=== PATIENT | female | born 1935 | race Caucasian/White ===

== ENCOUNTER 2021-03-26 06:50 | Inpatient (IN) ==
[2021-03-26] MEDS ORDERED: NS 0.9% 1000 ml BAG 1,000 ML IV ONE ×2 (06:52→14:16)
[2021-03-26] MEDS ORDERED: Iodixanol (CONTRAST) 320 MG/ML 100 ML SDV IV ONE ×2 (07:26→08:35)
[2021-03-26 07:50] LABS: ABS Basophils 0.1 10^3/ul (0-0.2); ABS Eosinophils 0.1 10^3/ul (0-0.6); ABS Lymphocytes 2.2 10^3/ul (1.0-4.8); ABS Monocytes 0.5 10^3/ul (0-0.8); ABS Neutrophils 5.6 10^3/ul (1.5-7.7); Eosinophil % 1.5 %; Hematocrit 36 % (35-47); Hemoglobin 11.4 g/dL (12.0-16.0); Lymphocyte % 25.4 %; Mean Corpuscular HGB Conc 32 g/dL (31-36); Mean Corpuscular Hemoglobin 22 pg (27-31); Mean Corpuscular Volume 69 fL (80-97); Platelet Count 315 10^3/uL (150-450); Red Blood Count 5.18 10^6 /uL (3.70-4.87); Red Cell Distribution Width 20 % (10-15); White Blood Count 8.5 10^3/uL (3.5-10.8)
[2021-03-26 07:53] LABS: Activated Partial Thrombo Time 40.4 seconds (26.0-38.0); INR 2.43 (0.86-1.15)
[2021-03-26 07:54] LABS: ALT 15 U/L (7-52); AST 47 U/L (13-39); Albumin 4.5 g/dL (3.2-5.2); Albumin/Globulin Ratio 1.4 (1-3); Alkaline Phosphatase 63 U/L (35-149); Anion Gap 11 mmol/L (2-11); Blood Urea Nitrogen 20 mg/dL (6-24); CO2 Carbon Dioxide 26 mmol/L (22-32); Calcium 9.4 mg/dL (8.6-10.3); Chloride 97 mmol/L (101-111); Cholesterol 116 mg/dL; EGFR African American 90.7 (>60); Globulin 3.3 g/dL (2-4); Glucose 137 mg/dL (70-100); HDL Cholesterol 46.5 mg/dL; LDL Cholesterol 55 mg/dL; Potassium 3.9 mmol/L (3.5-5.0); Sodium 134 mmol/L (135-145); Total Protein 7.8 g/dL (6.4-8.9); Triglycerides 74 mg/dL
[2021-03-26 07:59] LABS: Troponin I 1.26 ng/mL (<0.03)
[2021-03-26 08:31] LABS: Hypochromasia 1+; Microcytosis 1+; Polychromasia 1+
[2021-03-26 09:48] LABS: Rapid COVID-19 Molecular Undetected (Undetected)
[2021-03-26] MEDS ORDERED: Polyethylene Glycol 3350 17 GM PACKET PO PRN (10:13)
[2021-03-26 10:52] LABS: Troponin I 1.18 ng/mL (<0.03)
[2021-03-26] MEDS ORDERED: Perflutren Lipid Microsphere 3 ML VIAL ONE (14:53)
[2021-03-26] MEDS: Warfarin DAILY REMINDER **NOTE FOLLOW UP SCH (19:59)
[2021-03-27 05:40] LABS: INR 2.57 (0.86-1.15)
[2021-03-27] MEDS: Cholecalciferol (VIT D3) 1,000 unit TAB PO SCH (07:50)
[2021-03-27] MEDS: Warfarin DAILY REMINDER **NOTE FOLLOW UP SCH (19:24)
[2021-03-27] MEDS: Enoxaparin 40 MG/0.4 ML SYR SUBCUT SCH (20:47)
[2021-03-27] MEDS ORDERED: Lactated Ringers 1000 ml BAG 1,000 ML IV SCH (21:00)
[2021-03-28 05:47] LABS: Hematocrit 38 % (35-47); Hemoglobin 11.7 g/dL (12.0-16.0); Mean Corpuscular HGB Conc 31 g/dL (31-36); Mean Corpuscular Hemoglobin 21 pg (27-31); Mean Corpuscular Volume 69 fL (80-97); Mean Platelet Volume 7.6 fL (7.4-10.4); Platelet Count 298 10^3/uL (150-450); Red Blood Count 5.45 10^6 /uL (3.70-4.87); Red Cell Distribution Width 20 % (10-15); White Blood Count 7.9 10^3/uL (3.5-10.8)
[2021-03-28 06:01] LABS: Calcium 9.1 mg/dL (8.6-10.3); EGFR African American 101.7 (>60); EGFR Non-African American 84.1 (>60); Magnesium 1.8 mg/dL (1.9-2.7); Potassium 3.5 mmol/L (3.5-5.0)
[2021-03-28] MEDS: Cholecalciferol (VIT D3) 1,000 unit TAB PO SCH (09:28)
[2021-03-28] MEDS ORDERED: Magnesium Hydroxide LIQ 30 ML UDC PO PRN (15:14)
[2021-03-28] MEDS: Ondansetron 4 mg VIAL 2 MG/ML 2 ml VIAL IV PRN (15:58)
[2021-03-28] MEDS: Senna TAB 8.6 mg TAB PO PRN (15:58)
[2021-03-28] MEDS: Enoxaparin 40 MG/0.4 ML SYR SUBCUT SCH (20:38)
[2021-03-29 06:35] LABS: ABS Basophils 0.1 10^3/ul (0-0.2); ABS Eosinophils 0.2 10^3/ul (0-0.6); ABS Lymphocytes 2.3 10^3/ul (1.0-4.8); ABS Monocytes 0.5 10^3/ul (0-0.8); Eosinophil % 3.1 %; Hematocrit 36 % (35-47); Hemoglobin 11.2 g/dL (12.0-16.0); Lymphocyte % 32.3 %; Mean Corpuscular HGB Conc 31 g/dL (31-36); Mean Corpuscular Hemoglobin 22 pg (27-31); Mean Corpuscular Volume 70 fL (80-97); Mean Platelet Volume 7.6 fL (7.4-10.4); Platelet Count 269 10^3/uL (150-450); Red Blood Count 5.18 10^6 /uL (3.70-4.87); Red Cell Distribution Width 20 % (10-15); White Blood Count 7.1 10^3/uL (3.5-10.8)
[2021-03-29 06:42] LABS: Calcium 8.6 mg/dL (8.6-10.3); EGFR African American 95.1 (>60); EGFR Non-African American 78.6 (>60); Potassium 3.8 mmol/L (3.5-5.0)
[2021-03-29] MEDS: Cholecalciferol (VIT D3) 1,000 unit TAB PO SCH (08:45)
[2021-03-29] MEDS: Enoxaparin 40 MG/0.4 ML SYR SUBCUT SCH (20:18)
[2021-03-29] MEDS: Ondansetron 4 mg VIAL 2 MG/ML 2 ml VIAL IV PRN (20:18)
[2021-03-30] MEDS: Cholecalciferol (VIT D3) 1,000 unit TAB PO SCH (08:11)
[2021-03-30 09:44] LABS: Hematocrit 36 % (35-47); Hemoglobin 11.2 g/dL (12.0-16.0); Mean Corpuscular HGB Conc 31 g/dL (31-36); Mean Corpuscular Hemoglobin 22 pg (27-31); Mean Corpuscular Volume 70 fL (80-97); Mean Platelet Volume 7.6 fL (7.4-10.4); Platelet Count 278 10^3/uL (150-450); Red Blood Count 5.15 10^6 /uL (3.70-4.87); Red Cell Distribution Width 20 % (10-15); White Blood Count 5.9 10^3/uL (3.5-10.8)
[2021-03-30 10:00] LABS: Anion Gap 6 mmol/L (2-11); Blood Urea Nitrogen 18 mg/dL (6-24); CO2 Carbon Dioxide 28 mmol/L (22-32); Calcium 8.8 mg/dL (8.6-10.3); Chloride 101 mmol/L (101-111); EGFR African American 86.6 (>60); EGFR Non-African American 71.6 (>60); Glucose 106 mg/dL (70-100); Potassium 4.1 mmol/L (3.5-5.0); Sodium 135 mmol/L (135-145)
[2021-03-30 10:15] LABS: % Iron Saturation 5 % (15-55); Iron 25 ug/dL (50-212); Total Iron Binding Capacity 518 mcg/dL (250-450); Transferrin 370 mg/dL (203-362); Unsaturated Iron Binding < 503 ug/dL
[2021-03-30 10:35] LABS: Ferritin 27.1 ng/mL (11-307)
[2021-03-30 13:43] LABS: TSH Ultra Thyroid Stim Horm 3.41 mcIU/mL (0.34-5.60)
[2021-03-30 13:54] LABS: Vitamin B12 327 pg/mL (180-914)
[2021-03-30] MEDS ORDERED: fentaNYL 100 mcg/2 ml 50 MCG/ML VIAL ONE (14:07)
[2021-03-30] MEDS ORDERED: Midazolam 5 mg/5 ml VIAL 1 mg/ml 5 ml VIAL (5 mg) ONE (14:07)
[2021-03-30] MEDS ORDERED: Flumazenil 0.5 mg/5 ml 0.1 MG/ML 5 ml VIAL ONE (14:07)
[2021-03-30] MEDS ORDERED: Naloxone 0.4 mg VIAL 0.4 mg/ml 1 ml VIAL ONE (14:07)
[2021-03-30] MEDS: Iron Sucrose 200 MG in NS 0.9% 100 ml BAG 100 ML IVPB SCH (16:21)
[2021-03-30] MEDS ORDERED: PEG 3000 GI LAVAGE 1 GALLON PO ONE (18:00)
[2021-03-30] MEDS: Enoxaparin 40 MG/0.4 ML SYR SUBCUT SCH (19:42)
[2021-03-31 07:39] LABS: INR 1.37 (0.86-1.15)
[2021-03-31 07:40] LABS: Albumin 4.1 g/dL (3.2-5.2); Albumin/Globulin Ratio 1.2 (1-3); EGFR African American 89.3 (>60); EGFR Non-African American 73.8 (>60); Globulin 3.3 g/dL (2-4); Hematocrit 37 % (35-47); Hemoglobin 11.2 g/dL (12.0-16.0); Magnesium 1.9 mg/dL (1.9-2.7); Mean Corpuscular HGB Conc 31 g/dL (31-36); Mean Corpuscular Hemoglobin 22 pg (27-31); Mean Corpuscular Volume 71 fL (80-97); Mean Platelet Volume 7.7 fL (7.4-10.4); Platelet Count 287 10^3/uL (150-450); Potassium 3.8 mmol/L (3.5-5.0); Red Blood Count 5.19 10^6 /uL (3.70-4.87); Red Cell Distribution Width 20 % (10-15); Total Bilirubin 0.6 mg/dL (0.2-1.0); Total Protein 7.4 g/dL (6.4-8.9); White Blood Count 6.1 10^3/uL (3.5-10.8)
[2021-03-31] MEDS: Iron Sucrose 200 MG in NS 0.9% 100 ml BAG 100 ML IVPB SCH (09:41)
[2021-03-31] MEDS: NS 0.9% 1000 ml BAG 1,000 ML IV SCH ×2 (09:41→20:50)
[2021-03-31] MEDS: Cholecalciferol (VIT D3) 1,000 unit TAB PO SCH (09:42)
[2021-03-31] MEDS ORDERED: fentaNYL 100 mcg/2 ml 50 MCG/ML VIAL ONE (16:36)
[2021-03-31] MEDS ORDERED: Midazolam 10 mg/10 ml VIAL 1 mg/ml 10 ml VIAL (10 mg) ONE (16:36)
[2021-03-31] MEDS: Enoxaparin 40 MG/0.4 ML SYR SUBCUT SCH (20:47)
[2021-04-01] MEDS: Ondansetron 4 mg VIAL 2 MG/ML 2 ml VIAL IV PRN (02:44)
[2021-04-01 05:20] LABS: Hematocrit 35 % (35-47); Hemoglobin 10.6 g/dL (12.0-16.0); Mean Corpuscular HGB Conc 31 g/dL (31-36); Mean Corpuscular Hemoglobin 22 pg (27-31); Mean Corpuscular Volume 71 fL (80-97); Mean Platelet Volume 7.5 fL (7.4-10.4); Platelet Count 254 10^3/uL (150-450); Red Blood Count 4.89 10^6 /uL (3.70-4.87); Red Cell Distribution Width 20 % (10-15); White Blood Count 6.1 10^3/uL (3.5-10.8)
[2021-04-01 05:40] LABS: Calcium 8.5 mg/dL (8.6-10.3); EGFR African American 101.7 (>60); EGFR Non-African American 84.1 (>60); Potassium 3.5 mmol/L (3.5-5.0)
[2021-04-01] MEDS: Cholecalciferol (VIT D3) 1,000 unit TAB PO SCH (08:08)
[2021-04-01] MEDS: Iron Sucrose 200 MG in NS 0.9% 100 ml BAG 100 ML IVPB SCH (09:29)
[2021-04-02 06:45] LABS: ABS Basophils 0.1 10^3/ul (0-0.2); ABS Eosinophils 0.2 10^3/ul (0-0.6); ABS Lymphocytes 1.2 10^3/ul (1.0-4.8); ABS Monocytes 0.4 10^3/ul (0-0.8); ABS Neutrophils 4.2 10^3/ul (1.5-7.7); Eosinophil % 3.8 %; Hematocrit 35 % (35-47); Hemoglobin 10.9 g/dL (12.0-16.0); Lymphocyte % 20.1 %; Mean Corpuscular HGB Conc 31 g/dL (31-36); Mean Corpuscular Hemoglobin 22 pg (27-31); Mean Corpuscular Volume 72 fL (80-97); Mean Platelet Volume 7.7 fL (7.4-10.4); Nucleated Red Blood Cells % 0.4; Platelet Count 256 10^3/uL (150-450); Red Cell Distribution Width 20 % (10-15); White Blood Count 6.2 10^3/uL (3.5-10.8)
[2021-04-02] MEDS: Cholecalciferol (VIT D3) 1,000 unit TAB PO SCH (08:56)
[2021-04-02] MEDS: Iron Sucrose 200 MG in NS 0.9% 100 ml BAG 100 ML IVPB SCH (10:15)
[2021-04-02] MEDS: Senna TAB 8.6 mg TAB PO PRN (20:32)
[2021-04-02] MEDS: Ondansetron 4 mg VIAL 2 MG/ML 2 ml VIAL IV PRN (22:24)
[2021-04-03] MEDS: Cholecalciferol (VIT D3) 1,000 unit TAB PO SCH (08:43)
[2021-04-03] MEDS: Iron Sucrose 200 MG in NS 0.9% 100 ml BAG 100 ML IVPB SCH (08:44)
[2021-04-03 12:04] VITALS: BP 146/70
== END 2021-04-03 13:20 | disposition home health service (06) | DRG 65 ==
LOC: ED 06:50 → MEDTELE 10:02 → SUATTDRO 10:02 → MEDTELE 11:37
PROVIDERS: ADMIT Hospitalist; ATTEND Internal Medicine

== ENCOUNTER 2021-09-21 04:12 | Observation (INO) ==
[2021-09-21] MEDS ORDERED: NS 0.9% 1000 ml BAG 1,000 ML IV ONE (04:16)
[2021-09-21] MEDS ORDERED: Ondansetron 4 mg VIAL 2 MG/ML 2 ml VIAL IV ONE (04:19)
[2021-09-21 04:41] LABS: ABS Basophils 0.1 10^3/ul (0-0.2); ABS Eosinophils 0.1 10^3/ul (0-0.6); ABS Lymphocytes 2.3 10^3/ul (1.0-4.8); ABS Monocytes 0.4 10^3/ul (0-0.8); ABS Neutrophils 4.4 10^3/ul (1.5-7.7); Eosinophil % 1.4 %; Hematocrit 47 % (35-47); Hemoglobin 15.5 g/dL (12.0-16.0); Lymphocyte % 31.6 %; Mean Corpuscular HGB Conc 33 g/dL (31-36); Mean Corpuscular Hemoglobin 30 pg (27-31); Mean Corpuscular Volume 92 fL (80-97); Mean Platelet Volume 8.3 fL (7.4-10.4); Platelet Count 215 10^3/uL (150-450); Red Blood Count 5.13 10^6 /uL (3.70-4.87); Red Cell Distribution Width 15 % (10-15); White Blood Count 7.3 10^3/uL (3.5-10.8)
[2021-09-21 04:50] LABS: Activated Partial Thrombo Time 30.2 seconds (26.0-38.0); INR 1.41 (0.86-1.15)
[2021-09-21 04:59] LABS: Troponin I 0.02 ng/mL (<0.03)
[2021-09-21 05:09] LABS: ALT 21 U/L (7-52); Alkaline Phosphatase 47 U/L (35-149); Blood Urea Nitrogen 23 mg/dL (6-24); CO2 Carbon Dioxide 27 mmol/L (22-32); Calcium 9.7 mg/dL (8.6-10.3); Chloride 102 mmol/L (101-111); Cholesterol 157 mg/dL; Globulin 2.5 g/dL (2-4); Glucose 170 mg/dL (70-100); HDL Cholesterol 59.1 mg/dL; LDL Cholesterol 79 mg/dL; Sodium 138 mmol/L (135-145); Total Protein 7.5 g/dL (6.4-8.9); Triglycerides 95 mg/dL; eGFR CKD-EPI 85.2 (>60)
[2021-09-21 05:23] LABS: Anion Gap 9 mmol/L (2-11)
[2021-09-21] MEDS ORDERED: Prochlorperazine 5 mg/ml 2 ml VIAL (10 mg) IV ONE (05:28)
[2021-09-21] MEDS ORDERED: diPHENhydraMINE IV 50 MG/ML 1 ml VIAL (BENADRYL) IV ONE (06:02)
[2021-09-21] MEDS ORDERED: Iodixanol (CONTRAST) 320 MG/ML 100 ML SDV IV ONE (06:02)
[2021-09-21] MEDS ORDERED: Metoclopramide 5 MG/ML VIAL (10 mg) IV SLOW PU ONE (06:02)
[2021-09-21 06:32] LABS: Potassium Redraw 2.7 mmol/L (3.5-5.0)
[2021-09-21] MEDS ORDERED: Potassium Chloride IV 40 MEQ in Lactated Ringers 1000 ml BAG 1,000 ML IVPB SCH (07:00)
[2021-09-21] MEDS: NS 0.9% 1000 ml BAG 1,000 ML IV SCH (08:42)
[2021-09-21] MEDS: KCL 10 MEQ/50 ML IVPREMIX 10 MEQ/50 ML BAG IV SCH ×2 (08:43→12:32)
[2021-09-21] MEDS ORDERED: Polyethylene Glycol 3350 17 GM PACKET PO PRN (11:07)
[2021-09-21] MEDS ORDERED: Magnesium Hydroxide LIQ 30 ML UDC PO PRN (11:07)
[2021-09-21 11:09] LABS: Urine Appearance Clear; Urine Bilirubin Negative (Negative); Urine Blood 1+ (Negative); Urine Color Straw; Urine Glucose Negative (Negative); Urine Ketones Negative (Negative); Urine Nitrite Negative (Negative); Urine Protein Negative (Negative); Urine Specific Gravity 1.011 (1.002-1.030); Urine Urobilinogen Negative (Negative)
[2021-09-21 11:24] LABS: Urine Bacteria Absent (Absent); Urine Red Blood Cell Trace(0-2/hpf) (Absent); Urine White Blood Cell Trace(0-5/hpf) (Absent)
[2021-09-21] MEDS ORDERED: Psyllium PAK PO PRN (11:33)
[2021-09-22 06:04] LABS: ABS Eosinophils 0.1 10^3/ul (0-0.6); ABS Lymphocytes 1.9 10^3/ul (1.0-4.8); ABS Monocytes 0.5 10^3/ul (0-0.8); Eosinophil % 0.9 %; Hematocrit 46 % (35-47); Hemoglobin 15.3 g/dL (12.0-16.0); Mean Corpuscular HGB Conc 34 g/dL (31-36); Mean Corpuscular Hemoglobin 31 pg (27-31); Mean Corpuscular Volume 92 fL (80-97); Mean Platelet Volume 8.3 fL (7.4-10.4); Platelet Count 209 10^3/uL (150-450); Red Blood Count 4.97 10^6 /uL (3.70-4.87); Red Cell Distribution Width 15 % (10-15); White Blood Count 8.6 10^3/uL (3.5-10.8)
[2021-09-22 06:27] LABS: Calcium 9.6 mg/dL (8.6-10.3); HDL Cholesterol 62.5 mg/dL; Potassium 3.8 mmol/L (3.5-5.0)
[2021-09-22] MEDS ORDERED: LUTEIN ZEAXANTHIN PO SCH (09:00)
[2021-09-22] MEDS ORDERED: Cholecalciferol (VIT D3) 1,000 unit TAB PO SCH (09:00)
[2021-09-22] MEDS: NS 0.9% 1000 ml BAG 1,000 ML IV SCH (10:38)
[2021-09-22 12:29] VITALS: BP 167/94
== END 2021-09-22 15:50 | disposition home or self-care (01) ==
LOC: ED 04:12 → EDHOLD 04:12 → MEDTELE 15:30
PROVIDERS: ADMIT Internal Medicine; ATTEND Internal Medicine

== ENCOUNTER 2023-11-22 12:13 | Inpatient (IN) ==
[2023-11-22 12:53] LABS: ABS Lymphocytes 0.6 10^3/uL (1.0-4.8); ABS Monocytes 0.3 10^3/uL (0.0-0.9); ABS Neutrophils 10.3 10^3/uL (1.5-7.6); ABS Nucleated RBC 0.01 10^3/ul; Eosinophil % 0.1 %; Hemoglobin 14.1 g/dL (11.5-14.3); Lymphocyte % 5.2 %; Mean Corpuscular Hemoglobin 27.6 pg (27-33); Mean Corpuscular Hgb Conc 32.7 g/dL (31-36); Mean Corpuscular Volume 84.3 fL (80-97); Mean Platelet Volume 8.6 fL (7.5-11.2); Nucleated Red Blood Cells % 0.1 %/100WBC (0.0-0.8); Platelet Count 241 10^3/uL (150-450); Red Cell Distribution Width 16.8 % (12-17); White Blood Count 11.3 10^3/uL (3.8-11.8)
[2023-11-22 13:04] LABS: Activated Partial Thrombo Time 30.9 seconds (26.0-38.0); INR 1.85 (0.83-1.13)
[2023-11-22] MEDS: Lactated Ringers 1000 ml BAG 1,000 ML IV ONE ×2 (14:25→18:19)
[2023-11-22 15:31] LABS: Albumin 4.5 g/dL (3.2-5.2); Albumin/Globulin Ratio 1.6 (1-3); Calcium 9.2 mg/dL (8.6-10.3); Creatinine, Serum 0.72 mg/dL (0.51-0.95); Direct Bilirubin 0.1 mg/dL (0.03-0.18); Globulin 2.9 g/dL (2-4); HDL Cholesterol 52.9 mg/dL; Indirect Bilirubin 0.7 mg/dL (0.3-1.0); Total Bilirubin 0.8 mg/dL (0.2-1.0); Total Protein 7.4 g/dL (6.4-8.9); eGFR CKD-EPI 81.4 (>60)
[2023-11-22 16:52] LABS: Urine Appearance Clear; Urine Bilirubin Negative (Negative); Urine Blood 1+ (Negative); Urine Color Light-Yellow; Urine Glucose Negative (Negative); Urine Ketones Negative (Negative); Urine Nitrite Negative (Negative); Urine Protein 1+ (>=30 mg/dL) (Negative); Urine Specific Gravity 1.041 (1.002-1.030); Urine Urobilinogen Negative (Negative)
[2023-11-22 16:55] LABS: Urine Bacteria Absent /HPF (Absent); Urine Red Blood Cell 1+(3-5/hpf) /HPF (0-Trace); Urine Squamous Epithelial Cell Present /HPF (Absent); Urine White Blood Cell 2+(11-20/hpf) /HPF (0-Trace)
[2023-11-22 18:14] LABS: C Reactive Protein 4.59 mg/L (<8.01)
[2023-11-22] MEDS: Latanoprost 0.005% 2.5 ml BTL BOTH EYES SCH (21:35)
[2023-11-24 23:58] LABS: Calcium 8.8 mg/dL (8.6-10.3); Creatinine, Serum 0.77 mg/dL (0.51-0.95); Magnesium 1.9 mg/dL (1.9-2.7); Potassium 3.6 mmol/L (3.5-5.0); eGFR CKD-EPI 75.1 (>60)
[2023-11-25] MEDS ORDERED: Senna TAB 8.6 mg TAB PO PRN (13:51)
[2023-11-25] MEDS ORDERED: Magnesium Hydroxide LIQ 30 ML UDC PO PRN (13:51)
[2023-11-25] MEDS: Polyethylene Glycol 3350 17 GM PACKET PO PRN (21:15)
[2023-11-27 10:03] VITALS: BP 135/86
== END 2023-11-27 11:40 | DRG 64 ==
LOC: ED 12:13 → EDHOLD 12:13 → SUATTDRO 16:03 → MEDTELE 19:42
PROVIDERS: ADMIT Internal Medicine; ATTEND Hospitalist

== ENCOUNTER 2023-11-25 12:44 | Inpatient (IN) ==
[2023-11-27] MEDS ORDERED: Magnesium Hydroxide LIQ 30 ML UDC PO PRN (10:53)
[2023-11-27] MEDS: Latanoprost 0.005% 2.5 ml BTL BOTH EYES SCH (20:13)
[2023-11-28 08:07] LABS: ABS Basophils 0.1 10^3/uL (0.0-0.1); ABS Eosinophils 0.2 10^3/uL (0.0-0.5); ABS Lymphocytes 1.7 10^3/uL (1.0-4.8); ABS Monocytes 0.7 10^3/uL (0.0-0.9); ABS Neutrophils 4.5 10^3/uL (1.5-7.6); ABS Nucleated RBC 0.02 10^3/ul; Eosinophil % 3.1 %; Hematocrit 45.9 % (35-45); Hemoglobin 15.1 g/dL (11.5-14.3); Lymphocyte % 23.4 %; Mean Corpuscular Hemoglobin 28.1 pg (27-33); Mean Corpuscular Volume 85.2 fL (80-97); Mean Platelet Volume 8.8 fL (7.5-11.2); Nucleated Red Blood Cells % 0.2 %/100WBC (0.0-0.8); Platelet Count 210 10^3/uL (150-450); Red Blood Count 5.38 10^6/uL (3.63-4.92); Red Cell Distribution Width 16.1 % (12-17); White Blood Count 7.2 10^3/uL (3.8-11.8)
[2023-11-28 09:55] LABS: Albumin 4.1 g/dL (3.2-5.2); Albumin/Globulin Ratio 1.6 (1-3); Calcium 9.2 mg/dL (8.6-10.3); Creatinine, Serum 0.69 mg/dL (0.51-0.95); Globulin 2.5 g/dL (2-4); Potassium 4.3 mmol/L (3.5-5.0); Total Bilirubin 0.7 mg/dL (0.2-1.0); Total Protein 6.6 g/dL (6.4-8.9); eGFR CKD-EPI 84.5 (>60)
[2023-11-30 22:05] LABS: Urine Appearance Turbid; Urine Bilirubin Negative (Negative); Urine Blood Negative (Negative); Urine Color Light-Yellow; Urine Glucose Negative (Negative); Urine Ketones Negative (Negative); Urine Nitrite Negative (Negative); Urine Protein Trace (Negative); Urine Urobilinogen Negative (Negative)
[2023-11-30 22:07] LABS: Urine Bacteria 1+ /HPF (Absent); Urine Red Blood Cell 1+(3-5/hpf) /HPF (0-Trace); Urine Squamous Epithelial Cell Present /HPF (Absent); Urine Transitional Epithelial Present /HPF (Absent); Urine White Blood Cell 3+(>20/hpf) /HPF (0-Trace)
[2023-12-01 09:50] LABS: ABS Basophils 0.1 10^3/uL (0.0-0.1); ABS Eosinophils 0.1 10^3/uL (0.0-0.5); ABS Lymphocytes 1.4 10^3/uL (1.0-4.8); ABS Monocytes 0.5 10^3/uL (0.0-0.9); ABS Neutrophils 5.7 10^3/uL (1.5-7.6); Eosinophil % 1.6 %; Hematocrit 44.4 % (35-45); Hemoglobin 14.3 g/dL (11.5-14.3); Lymphocyte % 18.2 %; Mean Corpuscular Hemoglobin 27.7 pg (27-33); Mean Corpuscular Hgb Conc 32.1 g/dL (31-36); Mean Corpuscular Volume 86.3 fL (80-97); Mean Platelet Volume 8.3 fL (7.5-11.2); Platelet Count 201 10^3/uL (150-450); Red Blood Count 5.14 10^6/uL (3.63-4.92); Red Cell Distribution Width 16.2 % (12-17); White Blood Count 7.9 10^3/uL (3.8-11.8)
[2023-12-01 10:19] LABS: Activated Partial Thrombo Time 28.1 seconds (26.0-38.0); INR 1.04 (0.83-1.13)
[2023-12-01 10:27] LABS: Creatinine, Serum 0.77 mg/dL (0.51-0.95); eGFR CKD-EPI 75.1 (>60)
[2023-12-01] MEDS: Heparin 5000 UNITS/ML 1 mL VIAL SUBCUT SCH (21:02)
[2023-12-04 05:13] LABS: ABS Basophils 0.1 10^3/uL (0.0-0.1); ABS Eosinophils 0.2 10^3/uL (0.0-0.5); ABS Lymphocytes 1.9 10^3/uL (1.0-4.8); ABS Monocytes 0.6 10^3/uL (0.0-0.9); ABS Neutrophils 3.8 10^3/uL (1.5-7.6); Eosinophil % 3.2 %; Hematocrit 41.3 % (35-45); Hemoglobin 13.4 g/dL (11.5-14.3); Lymphocyte % 28.7 %; Mean Corpuscular Hemoglobin 27.8 pg (27-33); Mean Corpuscular Hgb Conc 32.5 g/dL (31-36); Mean Corpuscular Volume 85.7 fL (80-97); Mean Platelet Volume 8.6 fL (7.5-11.2); Nucleated Red Blood Cells % 0.1 %/100WBC (0.0-0.8); Platelet Count 186 10^3/uL (150-450); Red Blood Count 4.82 10^6/uL (3.63-4.92); Red Cell Distribution Width 16.2 % (12-17); White Blood Count 6.5 10^3/uL (3.8-11.8)
[2023-12-05 06:24] LABS: ABS Basophils 0.1 10^3/uL (0.0-0.1); ABS Eosinophils 0.2 10^3/uL (0.0-0.5); ABS Lymphocytes 1.9 10^3/uL (1.0-4.8); ABS Monocytes 0.6 10^3/uL (0.0-0.9); ABS Neutrophils 5.3 10^3/uL (1.5-7.6); ABS Nucleated RBC 0.01 10^3/ul; Eosinophil % 2.6 %; Hematocrit 43.6 % (35-45); Hemoglobin 14.3 g/dL (11.5-14.3); Lymphocyte % 23.1 %; Mean Corpuscular Hgb Conc 32.9 g/dL (31-36); Mean Corpuscular Volume 85.2 fL (80-97); Mean Platelet Volume 8.5 fL (7.5-11.2); Nucleated Red Blood Cells % 0.2 %/100WBC (0.0-0.8); Platelet Count 215 10^3/uL (150-450); Red Blood Count 5.11 10^6/uL (3.63-4.92); Red Cell Distribution Width 16.5 % (12-17)
[2023-12-05 06:42] LABS: Albumin 4.2 g/dL (3.2-5.2); Albumin/Globulin Ratio 1.5 (1-3); Calcium 9.3 mg/dL (8.6-10.3); Creatinine, Serum 0.68 mg/dL (0.51-0.95); Globulin 2.8 g/dL (2-4); Potassium 4.3 mmol/L (3.5-5.0); Total Bilirubin 0.8 mg/dL (0.2-1.0); eGFR CKD-EPI 84.8 (>60)
[2023-12-06] MEDS: Nystatin TOP POWDER 15 GM BTL TOPICAL SCH (19:35)
[2023-12-10] MEDS: Polyethylene Glycol 3350 17 GM PACKET PO PRN (17:51)
[2023-12-11] MEDS: Senna TAB 8.6 mg TAB PO PRN (20:12)
[2023-12-12 06:44] LABS: Albumin 4.2 g/dL (3.2-5.2); Albumin/Globulin Ratio 1.5 (1-3); Calcium 9.3 mg/dL (8.6-10.3); Creatinine, Serum 0.77 mg/dL (0.51-0.95); Globulin 2.8 g/dL (2-4); Potassium 4.7 mmol/L (3.5-5.0); Total Bilirubin 0.8 mg/dL (0.2-1.0); eGFR CKD-EPI 75.1 (>60)
[2023-12-12 08:01] LABS: ABS Basophils 0.1 10^3/uL (0.0-0.1); ABS Eosinophils 0.1 10^3/uL (0.0-0.5); ABS Lymphocytes 1.4 10^3/uL (1.0-4.8); ABS Monocytes 0.5 10^3/uL (0.0-0.9); ABS Neutrophils 4.2 10^3/uL (1.5-7.6); ABS Nucleated RBC 0.01 10^3/ul; Eosinophil % 2.2 %; Hematocrit 43.4 % (35-45); Hemoglobin 14.4 g/dL (11.5-14.3); Lymphocyte % 22.3 %; Mean Corpuscular Hemoglobin 28.2 pg (27-33); Mean Corpuscular Hgb Conc 33.1 g/dL (31-36); Mean Corpuscular Volume 85.1 fL (80-97); Mean Platelet Volume 8.5 fL (7.5-11.2); Nucleated Red Blood Cells % 0.1 %/100WBC (0.0-0.8); Platelet Count 231 10^3/uL (150-450); Red Cell Distribution Width 16.8 % (12-17); White Blood Count 6.4 10^3/uL (3.8-11.8)
[2023-12-16 04:14] VITALS: BP 144/68
== END 2023-12-16 11:55 | DRG 65 ==
LOC: PMRU 11-27 11:49
PROVIDERS: ADMIT Physical Medicine & Rehabilitation; ATTEND Physical Medicine & Rehabilitation

== ENCOUNTER 2024-04-26 18:41 | Inpatient (IN) ==
[2024-04-26] MEDS: Furosemide 20 mg/2 ml IV VIAL IV SLOW PU ONE (21:39)
[2024-04-26 21:45] LABS: Urine Appearance Clear; Urine Color Light-Yellow
[2024-04-26 21:46] LABS: Urine Bilirubin Negative (Negative); Urine Blood Negative (Negative); Urine Glucose 4+ (>=1000 mg/dL) (Negative); Urine Ketones Negative (Negative); Urine Nitrite Negative (Negative); Urine Protein Negative (Negative); Urine Urobilinogen Negative (Negative); Urine pH 6.5 (5.0-8.0)
[2024-04-26 21:59] LABS: ABS Basophils 0.1 10^3/uL (0.0-0.1); ABS Eosinophils 0.1 10^3/uL (0.0-0.5); ABS Lymphocytes 1.6 10^3/uL (1.0-4.8); ABS Monocytes 0.6 10^3/uL (0.0-0.9); ABS Nucleated RBC 0.01 10^3/ul; Eosinophil % 1.7 %; Hematocrit 34.3 % (35-45); Hemoglobin 11.1 g/dL (11.5-14.3); Lymphocyte % 22.2 %; Mean Corpuscular Hemoglobin 27.2 pg (27-33); Mean Corpuscular Hgb Conc 32.3 g/dL (31-36); Mean Corpuscular Volume 84.2 fL (80-97); Mean Platelet Volume 7.5 fL (7.5-11.2); Nucleated Red Blood Cells % 0.1 %/100WBC (0.0-0.8); Platelet Count 335 10^3/uL (150-450); Red Blood Count 4.08 10^6/uL (3.63-4.92); Red Cell Distribution Width 17.2 % (12-17); White Blood Count 7.3 10^3/uL (3.8-11.8)
[2024-04-26 22:25] LABS: Albumin 3.8 g/dL (3.2-5.2); Albumin/Globulin Ratio 1.4 (1-3); Calcium 8.8 mg/dL (8.6-10.3); Creatinine, Serum 0.78 mg/dL (0.51-0.95); Globulin 2.8 g/dL (2-4); Magnesium 1.8 mg/dL (1.9-2.7); Potassium 3.9 mmol/L (3.5-5.0); Total Bilirubin 0.6 mg/dL (0.2-1.0); Total Protein 6.6 g/dL (6.4-8.9); eGFR CKD-EPI 73.5 (>60)
[2024-04-26 23:13] LABS: High Sensitivity Troponin 1 Hr 234 pg/mL (<15)
[2024-04-27] MEDS ORDERED: Magnesium Hydroxide LIQ 30 ML UDC PO PRN (01:39)
[2024-04-27] MEDS ORDERED: Senna TAB 8.6 mg TAB PO PRN (01:39)
[2024-04-27] MEDS ORDERED: Polyethylene Glycol 3350 17 GM PACKET PO PRN (01:39)
[2024-04-27] MEDS: Magnesium Sulfate 2 gm BAG 2 GM/50 ML BAG IVPB ONE (02:19)
[2024-04-27 06:25] LABS: ABS Basophils 0.1 10^3/uL (0.0-0.1); ABS Eosinophils 0.1 10^3/uL (0.0-0.5); ABS Lymphocytes 1.2 10^3/uL (1.0-4.8); ABS Monocytes 0.6 10^3/uL (0.0-0.9); ABS Neutrophils 4.3 10^3/uL (1.5-7.6); ABS Nucleated RBC 0.01 10^3/ul; Eosinophil % 2.1 %; Hematocrit 31.2 % (35-45); Lymphocyte % 18.9 %; Mean Corpuscular Hgb Conc 32.1 g/dL (31-36); Mean Corpuscular Volume 84.1 fL (80-97); Mean Platelet Volume 7.4 fL (7.5-11.2); Nucleated Red Blood Cells % 0.2 %/100WBC (0.0-0.8); Platelet Count 311 10^3/uL (150-450); Red Blood Count 3.71 10^6/uL (3.63-4.92); Red Cell Distribution Width 16.8 % (12-17); White Blood Count 6.3 10^3/uL (3.8-11.8)
[2024-04-27 07:28] LABS: Calcium 8.1 mg/dL (8.6-10.3); Creatinine, Serum 0.92 mg/dL (0.51-0.95); Magnesium 2.1 mg/dL (1.9-2.7); Potassium 3.6 mmol/L (3.5-5.0); eGFR CKD-EPI 60.3 (>60)
[2024-04-27] MEDS: Cholecalciferol (VIT D3) 1,000 unit TAB PO SCH (11:11)
[2024-04-27] MEDS: Furosemide 40 mg/4 ml IV VIAL IV SLOW PU ONE ×2 (11:32→17:13)
[2024-04-27] MEDS: Sulfur Hexaflouride MICROSPHR 25 MG VIAL IV PRN (15:45)
[2024-04-27] MEDS ORDERED: Sulfur Hexaflouride MICROSPHR 25 MG VIAL ONE (16:07)
[2024-04-27] MEDS: Potassium Chlor 20 meq TAB.ER PO ONE (20:43)
[2024-04-27] MEDS: Latanoprost 0.005% 2.5 ml BTL BOTH EYES SCH (21:03)
[2024-04-28 02:53] LABS: ABS Eosinophils 0.1 10^3/uL (0.0-0.5); ABS Lymphocytes 1.3 10^3/uL (1.0-4.8); ABS Monocytes 0.5 10^3/uL (0.0-0.9); ABS Neutrophils 3.9 10^3/uL (1.5-7.6); Eosinophil % 2.4 %; Hematocrit 31.8 % (35-45); Hemoglobin 10.4 g/dL (11.5-14.3); Mean Corpuscular Hemoglobin 27.2 pg (27-33); Mean Corpuscular Hgb Conc 32.7 g/dL (31-36); Mean Corpuscular Volume 83.4 fL (80-97); Platelet Count 299 10^3/uL (150-450); Red Blood Count 3.81 10^6/uL (3.63-4.92); Red Cell Distribution Width 17.3 % (12-17); White Blood Count 5.9 10^3/uL (3.8-11.8)
[2024-04-28 03:21] LABS: Calcium 8.3 mg/dL (8.6-10.3); Creatinine, Serum 0.92 mg/dL (0.51-0.95); Magnesium 1.9 mg/dL (1.9-2.7); Potassium 3.7 mmol/L (3.5-5.0); eGFR CKD-EPI 60.3 (>60)
[2024-04-28 06:06] LABS: ABS Basophils 0.1 10^3/uL (0.0-0.1); ABS Eosinophils 0.2 10^3/uL (0.0-0.5); ABS Lymphocytes 1.4 10^3/uL (1.0-4.8); ABS Monocytes 0.5 10^3/uL (0.0-0.9); ABS Neutrophils 3.7 10^3/uL (1.5-7.6); Eosinophil % 3.1 %; Hematocrit 32.6 % (35-45); Hemoglobin 10.3 g/dL (11.5-14.3); Lymphocyte % 24.2 %; Mean Corpuscular Hemoglobin 26.7 pg (27-33); Mean Corpuscular Hgb Conc 31.6 g/dL (31-36); Mean Corpuscular Volume 84.6 fL (80-97); Mean Platelet Volume 7.5 fL (7.5-11.2); Platelet Count 295 10^3/uL (150-450); Red Blood Count 3.85 10^6/uL (3.63-4.92); Red Cell Distribution Width 17.1 % (12-17); White Blood Count 5.9 10^3/uL (3.8-11.8)
[2024-04-28 06:14] LABS: Calcium 8.5 mg/dL (8.6-10.3); Creatinine, Serum 0.88 mg/dL (0.51-0.95); Magnesium 1.9 mg/dL (1.9-2.7); eGFR CKD-EPI 63.6 (>60)
[2024-04-28] MEDS: Magnesium Sulfate 2 gm BAG 2 GM/50 ML BAG IVPB ONE (06:35)
[2024-04-28] MEDS: KCL 20 MEQ/100 ML IVPREMIX 20 MEQ/100 ML BAG IV ONE (09:07)
[2024-04-28] MEDS ORDERED: Furosemide 40 mg/4 ml IV VIAL IV ONE (13:28)
[2024-04-28] MEDS: Furosemide 40 mg/4 ml IV VIAL IV ONE (14:30)
[2024-04-28 22:26] VITALS: BP 130/66
== END 2024-04-29 04:00 | DRG 280 ==
LOC: ED 18:41 → EDHOLD 23:53 → SUATTDRO 23:53 → MEDTELE 04-27 13:24
PROVIDERS: ADMIT Internal Medicine; ATTEND Hospitalist